=== PATIENT | male | born 1980 | race Caucasian/White ===

== ENCOUNTER → 2021-11-20 04:46 | Outpatient (CLI) | payer BC, SELFPAY ==
[2021-11-20 11:21] LABS: SARS-CoV-2 RNA PCR Negative
== END ==
PROVIDERS: Visit Provider Surgery
DX: Z01.812 Encounter for preprocedural laboratory examination (principal); Z20.822 Contact with and (suspected) exposure to COVID-19
CPT/HCPCS: C9803; U0003; U0005

== ENCOUNTER 2021-11-23 01:17 | Day surgery (SDC) | payer BC, SELFPAY ==
[2021-11-18 11:04] VITALS: BMI 30.2
--- NOTE | 2021-11-18 11:12 | PC.NURSE ---
Report to the Outpatient Waiting Room, entrance under the green pavilion located off [facility], at time 0900 on date 11/23/21. OR Time: 1100. - You and your visitor will be asked a series of questions to screen for COVID 19 for your protection. - A mask is required within the hospital. One visitor will be allowed to accompany the patient into the hospital. Patients visitor will be instructed to remain with patient at all times or leave the building. We will allow the visitor to come back to the postoperative area when patient is ready. Preoperative COVID Testing Requirements: COVID TEST 11/20 AT 0830 No COVID Test needed if: (proof is required; if not received patient will have Rapid Test prior to entry) - Patient has received COVID Vaccine at least 14 days prior to procedure date or - Patient has positive COVID test result within last 90 days of surgery date. COVID Test needed if above criteria is not met If not COVID vaccinated a COVID test must be conducted within 72 hours of surgery and patient is asked to isolate self from time of testing until procedure. You will go to the [facility] for your COVID testing. The [facility] site is located at the corner of [address] from [facility]. You will only be called if COVID results are positive and your surgeon may reschedule your elective surgery date. Patients may have clear liquids (water, carbonated beverages, clear teas, apple juice) until 3 hours prior to surgery with a maximum of 20 ounces. - No food from midnight until time of surgery Take the following medications with a SIP of water the morning of surgery: NONE Medications to discontinue per physician: N/A Date to take last dose: N/A Please no make-up, nail yakut, hairspray, perfume, deodorant, or body powder the day of surgery. No jewelry (including any body piercings) or valuables the day of surgery, leave them at home. Please take a shower or bath the night before, or the morning of, surgery with an antibacterial soap. Wear comfortable, loose fitting clothing. - Jewelry must be removed prior to entering the operating room. Rings and piercings that are not removed may be cut off. - The hospital will not accept responsibility for valuables. - Please leave all valuables, including medications, at home the day of surgery. If you are going home after surgery, a licensed telephone directory distributor driver must drive you home. - NO public transportation without another adult. - We recommend that an adult stay with you for 24 hours following discharge. - We also recommend that you do not drive, make important decision, drink alcoholic beverages, or take any drugs that were not prescribed by your health care provider for at least 24 hours after your discharge time. Follow any additional instructions given to you from your surgeon. Telephone instructions given to EZ GRIJALVA and asked if any additional questions and then verbalized understanding. Patient advised to call surgeon office or pre surgery nurse liaison [phone] if any additional questions.
[2021-11-23 09:25] VITALS: BP 127/80; PULSE 59; RESP 18; TEMP 36.5; O2SAT 99; BMI 30.2
[2021-11-23] MEDS: LACTATED RINGERS 1,000 ML 150 ML IV CONT (09:45)
--- NOTE | 2021-11-23 10:31 | WPDANESEPP ---
Anes - Eval Pre Procedure Procedure: Operation Date: 11/23/21 11:00 Proposed Procedures p Excisional Biopsy Back Mass Times Two - Veronika Duggan MD Date/Time: 11/23/21 10:31 Pre Op Diagnosis: mass of back x2 Patient Data Age: 41 Gender: M Height: 2.03 m Weight: 124.7 kg Last Vital Signs Temp 36.5 C 11/23/21 09:25 Pulse 59 L 11/23/21 09:25 Resp 18 11/23/21 09:25 BP 127/80 11/23/21 09:25 Pulse Ox 99 11/23/21 09:25 Allergies Allergy/AdvReac Type Severity Reaction Status Date / Time No Known Allergies Allergy Verified 11/18/21 11:04 Home Medications Medication Instructions Recorded Confirmed Type irbesartan 75 mg tablet 75 mg PO DAILY 11/13/21 11/23/21 History terbinafine HCl 250 mg tablet 250 mg PO DAILY 11/13/21 11/23/21 History Patient hx anesthesia problems: none Family hx anesthesia problems: none Results Review: All pre-operative results and documents have been reviewed as part of the pre-operative evaluation. 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
--- NOTE | 2021-11-23 10:33 | WPDHPUPDATE1 ---
History and Physical Update Update Date/Time: 11/23/21 10:33 History and Physical has been reviewed, including an updated exam of the patient. There are NO changes in the patient's condition. Risks, benefits, and alternatives have been discussed and questions answered. Patient agrees to proceed with procedure.
--- NOTE | 2021-11-23 10:37 | WPDANESEFPP ---
Anes - Eval Final PreProcedure Day of Procedure 11/23/21 10:37 Patient weight: obese Heart: regular rate and rhythm Lungs: clear to auscultation and normal air movement Airway: Mallampati scale class II Neurological: alert and oriented Last oral intake: >/= 8 hours ASA classification: II Emergent: no Anesthetic plan: proceed Anesthesia type and monitoring: general GIVS and standard monitoring Results Review: All pre-operative results and documents have been reviewed as part of the pre-operative evaluation. Informed Consent: The patient's anesthetic plan and its attendant risks and benefits were discussed with the patient/family/POA. Questions were solicited and answers provided to the satisfaction of the patient/family/POA.
[2021-11-23] MEDS: ceFAZolin 3 GM/D5W 100 ML 100 ML IVPB (10:39)
[2021-11-23] MEDS: BACITRACIN OINTMENT 15 GM TUBE 1 APPLIC TOPICAL (11:26)
--- NOTE | 2021-11-23 11:36 | W.PM.PROC2 ---
Procedure Note - Detailed Date of Procedure 11/23/21 Pre-op Diagnosis mass of back x2 measuring 2 x 2 cm and 1.5 x 1.5 cm Post-op Diagnosis Same Procedure Performed excisional biopsy mid back mass x2, measuring 2 x 2 cm and 1.5 x 1.5 cm Surgeon Veronika Duggan MD Anesthesia MAC and Local Indications 41-year-old male presenting to the office with a cystic mass back x2, patient reports slowly enlarging and much more symptomatic over time Findings cystic back mass likely sebaceous cyst x2 Description of Procedure The patient was taken to the operating room and placed in the lateral position. After adequate induction of MAC anesthesia, the patient was prepped and draped in the normal sterile fashion. A time-out was then done to verify the patient's identity, as well as the procedure being performed. I began by localizing around both these areas in the mid back. Once adequately anesthetized, I made an elliptical incision around the more lateral mass. This mass was noted to be approximately 1.5 x 1.5 cm. I carried the incision down to the level of the subcutaneous tissue, where the mass was located. This was noted to be a cystic mass with a sebaceous material noted. I was able to bluntly and sharply dissect around this mass, freeing it up from the surrounding tissue. The cystic mass was then excised in full and sent to pathology for further review. I then gained hemostasis with the Bovie cautery and the subcutaneous tissue was washed out with normal saline. No other pathology was noted. I then closed the subcutaneous tissue with 3-0 Vicryl suture. I then used 3-0 nylon suture in interrupted fashion to close the overlying skin. I then made an elliptical incision over the more medial mass, which measured approximately 2 x 2 cm. Again this was carried through the dermis into the subcutaneous tissue. Again a cystic mass noted, most consistent with sebaceous cyst. I again bluntly and sharply dissected out the the mass from the surrounding tissue. It was then sent to pathology for further review. Again copiously irrigated the cavity and gained hemostasis with the Bovie cautery. The subcutaneous tissue was closed with 3-0 Vicryl suture. The skin was closed with interrupted 3-0 nylon suture. Patient tolerated these procedures well and was alert and awake in the operating room postop. He will be sent to the recovery room in stable condition. Estimated Blood Loss 10 Drains No Packing No Pathology Yes Complications No immediate complications Condition Stable Disposition PACU
[2021-11-23 11:41] VITALS: BP 115/67; PULSE 58; RESP 14; O2SAT 100
[2021-11-23 12:10] VITALS: BP 109/70; PULSE 50; RESP 14
== END 2021-11-23 12:45 | disposition home or self-care (01) ==
PROVIDERS: PCP Family Medicine; Visit Provider Surgery
PROC: (CPT 11404; principal; 2021-11-23 11:00)
DX: L72.0 Epidermal cyst (principal); I10 Essential (primary) hypertension; E66.9 Obesity, unspecified; Z68.30 Body mass index [BMI] 30.0-30.9, adult
CPT/HCPCS: 11404; 11403; 12032; 88304; A9270; J0690; J2250; J2704; J3010; J7120